=== PATIENT | female | born 1990 | race Caucasian/White ===

== ENCOUNTER 2017-07-22 22:19 | Emergency (ER) | payer OTHER ==
[~2017-07-22] VITALS: Ht 165.1 cm; Wt 99.8 kg
[~2017-07-22 22:19] MED LIST: LEVA500T PO
--- NOTE | 2017-07-22 23:19 | PD ---
HPI Chief Complaint Contractions Date Seen: Jul 22, 2017 Travel History International Travel<30 Days: No Contact w/Intl Traveler<30Days: No Known Affected Area: No History of Present Illness HPI 26-year-old G 3 P1 who is here at 40 weeks gestation complains of nocturnal contractions for the past 3 days. She felt that they were becoming more regular and more painful before her arrival but since she has been here at the hospital they seem to have dissipated. Patient denies vaginal discharge, vaginal bleeding. Patient states that she was 4-5 cm in the office today and she is group B strep positive. 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 SKIN: Warm and dry. HEAD: Normocephalic and atraumatic. EYES: No scleral icterus. No injection or drainage. ENT: No nasal drainage noted. Mucous membranes pink. Airway patent. NECK: Supple, trachea midline. No JVD. CARDIOVASCULAR: Regular rate and rhythm without murmurs, gallops, or rubs. RESPIRATORY: Breath sounds equal bilaterally. No accessory muscle use. ABDOMEN/GI: Abdomen soft, non-tender, bowel sounds present, no rebound, no guarding Gravid to [-38] weeks size Fundal Height: [-] GENITOURINARY: External Genitalia: intact and normal in appearance BUS glands: [Normal-] Cervix: [Posterior-] Dilatation: [-1-2] Effacement: [-50] Station: [-3-] Presentation: [-Vertex] Membranes: [intact or ruptured] intact with negative amnisure Uterine Contractions: [-] Absent FHT's: Category: [-] 1 Baseline: [-140] Reactive: [Moderate-] Variability: [Moderate-] Decels: [-Absent] EXTREMITIES: No cyanosis or edema. BACK: Nontender without obvious deformity. No CVA tenderness. NEUROLOGICAL: Awake and alert. Motor and sensory grossly within normal limits. Five out of 5 muscle strength in all muscle groups. Normal speech. Data Data Vital Signs Reviewed: Yes Group B Strep: Negative MDM Medical Record Reviewed: Yes Plan 26-year-old with a prior section who is been cleared for Patient with contractions earlier but now they have dissipated Labor precautions given and she is already scheduled for induction of labor if she does not labor spontaneously Diagnosis Diagnosis: Primary Impression: 40 weeks gestation of Additional Impressions: False labor after 37 weeks of gestation without delivery Previous section complicating , antepartum condition or complication Disposition: 01 DISCHARGE HOME Jeanne Fang MD Jul 22, 2017 23:18
== END 2017-07-22 23:22 | disposition home or self-care (01) ==
LOC: HOBED 22:19
DX: O47.1 False labor at or after 37 completed weeks of gestation (principal); O34.219 Maternal care for unspecified type scar from previous cesarean delivery; Z3A.40 40 weeks gestation of pregnancy
CPT/HCPCS: 59025; 84112

== ENCOUNTER 2017-07-24 14:15 | Inpatient (IN) | payer OTHER ==
[2017-07-24] VITALS (35 sets, daily range): BP systolic 108–141; BP diastolic 61–108; PULSE 68–105; RESP 18–22; TEMP 97.9–98.8
[2017-07-24] MEDS: LACTATED RINGER'S 1000 ML INJ 1,000 ML IV SCH ×2 (15:01→23:01)
[2017-07-24] MEDS ORDERED: LACTATED RINGER'S 1000 ML INJ 1,000 ML IV PRN (15:01)
[2017-07-24] MEDS ORDERED: SODIUM CHLORID 0.9% 500 ML INJ 500 ML IV PRN (15:15)
[2017-07-24] MEDS ORDERED: MINERAL OIL 10 ML VIAL TOPICAL PRN (15:15)
[2017-07-24] MEDS ORDERED: LIDOCAINE HCL 1% 50 ML VIAL I-DERMAL PRN (15:15)
[2017-07-24] MEDS ORDERED: CITRIC ACID-SODIUM CITRATE LIQ 30 ML UDC PO SCH (15:15)
[2017-07-24] MEDS ORDERED: LIDOCAINE HCL 1% 50 ML VIAL INFIL PRN (15:15)
[2017-07-24] MEDS ORDERED: OXYTOCIN 30 UNITS-500ML PREMIX 500 ML IV ONE (15:15)
[2017-07-24] MEDS ORDERED: SODIUM CHLOR 0.9% 1000 ML INJ 1,000 ML IV PRN (15:21)
--- NOTE | 2017-07-24 15:21 | PD ---
HPI Chief Complaint 40 weeks and 4 days SROM today at 10:30 Date Seen: Jul 24, 2017 Time Seen: 15:10 Travel History International Travel<30 Days: No Contact w/Intl Traveler<30Days: No Known Affected Area: No History of Present Illness HPI Pt is a 26 yo at 40 weeks and 4 days. EDC 07/20/2017 Care with Jannaaimee Larson. Pt has had previous C section for breech presentation. She desires and consulted Dr May 07-09-2017 for same. Pt was deemed a suitable candidate. Pt reports large gush of fluid around 10:30 this morning. Clear. She states that she filled a pad within an hour. Minimal trickle since. Amniosure is faintly positive. GBS is negative. No vaginal bleeding. Active movements. Weeks Gestation: 40 Para: 1 Miscarriage: 1 History Past Medical History Medical History: Denies Significant Hx Obstetric History Obstetric History Previous C section for breech, Previous miscarriage Past Surgical History Narrative Surgical Previous C Section Surgical History: No Previous Surgery Family History Family History: Negative Social History Alcohol Use: No Tobacco Use: Yes (1/2 PPD smoker) Substance Abuse: No Allergies-Medications (Allergen,Severity, Reaction): Coded Allergies: No Known Allergies (Verified Allergy, Unknown, 07/22/17) *MDRO Multi-Drug Resistant Organism (Verified Adverse Reaction, Unknown, ) 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 SKIN: Warm and dry. HEAD: Normocephalic and atraumatic. EYES: No scleral icterus. No injection or drainage. ENT: No nasal drainage noted. Mucous membranes pink. Airway patent. NECK: Supple, trachea midline. No JVD. CARDIOVASCULAR: Regular rate and rhythm without murmurs, gallops, or rubs. RESPIRATORY: Breath sounds equal bilaterally. No accessory muscle use. BREASTS: Bilateral exam showed no masses , no retractions, no nipple discharge. ABDOMEN/GI: Abdomen soft, non-tender, bowel sounds present, no rebound, no guarding Gravid to [40] weeks size Fundal Height: [40] Kunal's EFW 7and 1/2 lbs GENITOURINARY: External Genitalia: intact and normal in appearance BUS glands: [wnl] Cervix: [soft] Dilatation: [3cm] Effacement: [80%] Station: [-2] Presentation: [vertex] Membranes: [ruptured] forebag palpable Uterine Contractions: [none] FHT's: Category: [1] Baseline: [130s] Reactive: [-] Variability: [moderate] Decels: [none] EXTREMITIES: No cyanosis or edema. BACK: Nontender without obvious deformity. No CVA tenderness. NEUROLOGICAL: Awake and alert. Motor and sensory grossly within normal limits. Five out of 5 muscle strength in all muscle groups. Normal speech. Data Data Vital Signs Reviewed: Yes Orders Orders Ob (2e) Additional Admit Info (07/24/17 15:00) Group B Strep: Negative MDM Medical Record Reviewed: Yes Plan Pt is a 26 yo at 40 weeks and 4 days. Pt presents with SROM at 10:30 this morning. Active movements, not feeling contractions. Amniosure positive. GBS negative Pt with previous C Section and cleared for . Will admit to L&D. Plan will be to AROM forebag and internalize and await events. If no cervical change will augment with low dose Pitocin per protocol. Diagnosis Diagnosis: Primary Impression: Postmaturity , 40-42 weeks gestation Additional Impressions: Previous delivery affecting Ruptured, membranes, premature Desires (vaginal after ) trial Sage Hilario MD Jul 24, 2017 15:20
--- NOTE | 2017-07-24 15:30 | HHI.HP ---
HPI Chief Complaint 40 weeks and 4 days Previous C Section, desiring SROM at 10:30 this morning. Date Seen: Jul 24, 2017 Time Seen: 15:10 Travel History International Travel<30 Days: No Contact w/Intl Traveler<30Days: No Known Affected Area: No History of Present Illness HPI Pt is a 26 yo at 40 weeks and 4 days. EDC 07/20/2017 Care with Janna Larson. Pt has had previous C section for breech presentation. She desires and consulted Dr May 07-09-2017 for same. Pt was deemed a suitable candidate. Pt reports large gush of fluid around 10:30 this morning. Clear. She states that she filled a pad within an hour. Minimal trickle since. Amniosure is faintly positive. GBS is negative. No vaginal bleeding. Active movements. Pt is being admitted for trial of labor after previous vaginal delivery Weeks Gestation: 40 Para: 1 : 3 Miscarriage: 1 History Past Medical History Medical History: Denies Significant Hx Obstetric History Obstetric History Previous C Section for breech/ previous miscarriage Past Surgical History Narrative Surgical previous C Section Family History Family History: Negative Social History Alcohol Use: No Tobacco Use: Yes (1/2 PPD smoker) Substance Abuse: No Allergies-Medications (Allergen,Severity, Reaction): Coded Allergies: No Known Allergies (Verified Allergy, Unknown, 07/22/17) *MDRO Multi-Drug Resistant Organism (Verified Adverse Reaction, Unknown, ) 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 SKIN: Warm and dry. HEAD: Normocephalic and atraumatic. EYES: No scleral icterus. No injection or drainage. ENT: No nasal drainage noted. Mucous membranes pink. Airway patent. NECK: Supple, trachea midline. No JVD. CARDIOVASCULAR: Regular rate and rhythm without murmurs, gallops, or rubs. RESPIRATORY: Breath sounds equal bilaterally. No accessory muscle use. BREASTS: Bilateral exam showed no masses , no retractions, no nipple discharge. ABDOMEN/GI: Abdomen soft, non-tender, bowel sounds present, no rebound, no guarding Gravid to [40] weeks size Fundal Height: [40] GENITOURINARY: External Genitalia: intact and normal in appearance BUS glands: [wnl] Cervix: [soft] Dilatation: [3cm] Effacement: [80%] Station: [-2] Presentation: [vertex] Membranes: [ruptured] Uterine Contractions: [none] FHT's: Category: [1] Baseline: [130s] Reactive: [-] Variability: [moderate] Decels: [none] EXTREMITIES: No cyanosis or edema. BACK: Nontender without obvious deformity. No CVA tenderness. NEUROLOGICAL: Awake and alert. Motor and sensory grossly within normal limits. Five out of 5 muscle strength in all muscle groups. Normal speech. Caprini VTE Risk Assessment Caprini VTE Risk Assessment: No/Low Risk (score <= 1) Caprini Risk Assessment Model Point Value = 1 Point Value = 2 Point Value = 3 Point Value = 5 Age 41-60 Minor surgery BMI > 25 kg/m2 Swollen legs Varicose veins or History of unexplained or recurrent spontaneous Oral contraceptives or hormone replacement Sepsis (< 1 month) Serious lung disease, including pneumonia (< 1 month) Abnormal pulmonary function Acute myocardial infarction Congestive heart failure (< 1 month) History of inflammatory bowel disease Medical patient at bed rest Age 61-74 Arthroscopic surgery Major open surgery (> 45 min) Laparoscopic surgery (> 45 min) Malignancy Confined to bed (> 72 hours) Immobilizing plaster cast Central venous access Age >= 75 History of VTE Family history of VTE Factor V Leiden Prothrombin [id number] Lupus anticoagulant Anticardiolipin antibodies Elevated serum homocysteine Heparin-induced thrombocytopenia Other congenital or acquired thrombophilia Stroke (< 1 month) Elective arthroplasty Hip, pelvis, or leg fracture Acute spinal cord injury (< 1 month) Prophylaxis Regimen Total Risk Factor Score Risk Level Prophylaxis Regimen 0-1 Low Early ambulation 2 Moderate Order ONE of the following: *Sequential Compression Device (SCD) *Heparin 5000 units SQ BID 3-4 Higher Order ONE of the following medications: *Heparin 5000 units SQ TID *Enoxaparin/Lovenox 40 mg SQ daily (WT < 150 kg, CrCl > 30 mL/min) *Enoxaparin/Lovenox 30 mg SQ daily (WT < 150 kg, CrCl > 10-29 mL/min) *Enoxaparin/Lovenox 30 mg SQ BID (WT < 150 kg, CrCl > 30 mL/min) AND/OR *Sequential Compression Device (SCD) 5 or more Highest Order ONE of the following medications: *Heparin 5000 units SQ TID (Preferred with Epidurals) *Enoxaparin/Lovenox 40 mg SQ daily (WT < 150 kg, CrCl > 30 mL/min) *Enoxaparin/Lovenox 30 mg SQ daily (WT < 150 kg, CrCl > 10-29 mL/min) *Enoxaparin/Lovenox 30 mg SQ BID (WT < 150 kg, CrCl > 30 mL/min) AND *Sequential Compression Device (SCD) Data Data Vital Signs Reviewed: Yes Orders Orders Ob (2e) Additional Admit Info (07/24/17 15:00) Admit To Inpatient (07/24/17 ) Code Status (07/24/17 15:01) Vital Signs (Adult) .Per protocol (07/24/17 15:01) Activity Oob Ad Judie (07/24/17 15:01) Heart (07/24/17 15:01) Amnioinfusion (07/24/17 15:01) Diet Liquid (07/24/17 Dinner) Lactated Ringer's 1000 Ml Inj (Lr 1000 M (07/24/17 15:01) Lactated Ringer's 1000 Ml Inj (Lr 1000 M (07/24/17 15:01) Sodium Chlorid 0.9% 500 Ml Inj (Ns 500 M (07/24/17 15:15) Sodium Chlor 0.9% 1000 Ml Inj (Ns 1000 M (07/24/17 15:21) Lidocaine 1% Inj (50 Ml) (Xylocaine 1% I (07/24/17 15:15) Citric Acid-Sodium Citrate Liq (Bicitra (07/24/17 15:15) Fentanyl Inj (Fentanyl Inj) (07/24/17 15:15) Fentanyl Inj (Fentanyl Inj) (07/24/17 15:15) Complete Blood Count With Diff (07/24/17 15:01) Hold Clot (07/24/17 15:01) Abo/Rh Blood Type (07/24/17 15:01) Urinalysis - C+S If Indicated (07/24/17 15:01) Drug Screen, Random Urine (07/24/17 15:01) Resp Oxygen Non Rebreathe Mask (07/24/17 ) ^ Epidural / Intrathecal Infus (07/24/17 15:01) Oxytocin 30 Units-500ml Premix (Pitocin (07/24/17 15:15) Lidocaine 1% Inj (50 Ml) (Xylocaine 1% I (07/24/17 15:15) Light Mineral Oil (Muri-Lube Oil) (07/24/17 15:15) Inpatient Certification (07/24/17 ) Group B Strep: Negative Assessment/Plan Assessment and Plan Pt is a 26 yo at 40 weeks and 4 days. Presents with SROM at 10:30 Amniosure positive. Prior C Section, desirous of . EFW 7 and 1/2 lbs. Will admit to L&D. AROM of forebag, internalize. Expectant management, will initiate low dose pitocin per protocol if no changes. Sage Hilario MD Jul 24, 2017 15:30
[2017-07-24 16:44] LABS: BILIRUBIN, URINE NEG (NEG); BLOOD, URINE NEG (NEG); GLUCOSE,URINE NEG (NEG); KETONE, URINE NEG (NEG); MUCUS URINE FEW /lpf (OCC); NITRITE,URINE NEG (NEG); PH, URINE 7.5 (5.0-8.5); SQUAMOUS EPITHELIAL CELL URINE 8 /hpf (0-5); URIC ACID CRYSTALS, URINE MOD /hpf; URINE COLOR YELLOW (YELLW/STRAW); URINE LEUKOCYTE ESTERASE MOD (NEG)
[2017-07-24 16:45] LABS: AUTOMATED NEUTROPHIL # 10.2 TH/MM3 (1.8-7.7); BASOPHIL % 0.2 % (0.0-2.0); EOSINOPHIL # 0.1 TH/MM3 (0-0.4); EOSINOPHIL % 0.6 % (0.0-4.0); HEMATOCRIT 29.9 % (35.0-46.0); HEMOGLOBIN 10.3 GM/DL (11.6-15.3); LYMPH % 16.7 % (9.0-44.0); LYMPHOCYTE # 2.2 TH/MM3 (1.0-4.8); MEAN CELL VOLUME 79.5 FL (80.0-100.0); MEAN CORPUSCULAR HEMOGLOBIN 27.2 PG (27.0-34.0); MEAN CORPUSCULAR HGB CONC 34.2 % (32.0-36.0); MEAN PLATELET VOLUME 8.7 FL (7.0-11.0); MONO % 6.8 % (0.0-8.0); MONOCYTE # 0.9 TH/MM3 (0-0.9); NEUT % 75.7 % (16.0-70.0); PLATELET COUNT 344 TH/MM3 (150-450); RED BLOOD COUNT 3.77 MIL/MM3 (4.00-5.30); RED CELL DISTRIBUTION WIDTH 13.4 % (11.6-17.2); WHITE BLOOD COUNT 13.4 TH/MM3 (4.0-11.0)
--- NOTE | 2017-07-24 17:08 | PD.LABORPN ---
Subjective Subjective 40 weeks and 4 days. Comfortable. Objective Objective Pelvic Exam: Cervix: [soft] Dilatation: [3cm] Effacement: [70%] Station: [-2] Presentation: [vertex] Membranes: [ruptured] AROM of forebag , minimal, clear Uterine Contractions: [irregular ] IUPC inserted FHT's: Category: [1] Baseline: [120s] Reactive: [-] Variability: [moderate] Decels: [none] Weeks Gestation: 40 Gest Age Assessed Date: Jul 24, 2017 Gest Age Assessed Time: 15:10 Pt started active labor?: No Medical induction of labor?: No Assessment/Plan Assessment and Plan 40 weeks and 4 days. SROM. 3cm/70%/-2, AROM of forebag done. GBS negative Expectant, will start low dose Pitocin if no cervical change. Sage Hilario MD Jul 24, 2017 17:08
[2017-07-24] MEDS ORDERED: OXYTOCIN 30 UNITS-500ML PREMIX 500 ML IV PRN (19:00)
[2017-07-24] MEDS ORDERED: SE-NTAB3 PO ×2 (19:09)
[2017-07-24] MEDS ORDERED: fentaNYL 2MCG-BUPIV 0.125% INJ 100 ML ONE (21:42)
[2017-07-24] MEDS ORDERED: ePHEDrine/NS 25 MG/5 ML SYRINGE ONE (21:43)
[2017-07-24] MEDS ORDERED: fentaNYL 2MCG-BUPIV 0.125% 100 ML EPIDURAL SCH (23:00)
[2017-07-24] MEDS ORDERED: DO NOT ADMINISTER ANTICOAGULANTS PRN (23:00)
[2017-07-24] MEDS ORDERED: ePHEDrine/NS 25 MG/5 ML SYRINGE IV PUSH PRN (23:00)
[2017-07-24] MEDS ORDERED: NO SYSTEM NARCOTICS PRN (23:00)
[2017-07-25] VITALS (13 sets, daily range): BP systolic 118–133; BP diastolic 70–82; PULSE 65–87; RESP 18–20; TEMP 97.7–98.5; O2SAT 97–98
--- NOTE | 2017-07-25 00:23 | PD.LABORPN ---
Subjective Subjective Patient seen and examined. No complaints. Epidural in place. Pitocin started with contraction every 2-3 minutes. Objective Vital Signs Vital Signs Date Time Temp Pulse Resp B/P (MAP) Pulse Ox O2 Delivery O2 Flow Rate FiO2 07/25/17 00:01 83 133/78 (96) 07/24/17 23:40 75 128/78 (95) 07/24/17 23:31 105 121/70 (87) 07/24/17 23:16 97.9 07/24/17 23:01 87 124/87 (99) 07/24/17 22:31 80 121/80 (94) 07/24/17 22:30 68 07/24/17 22:28 83 123/89 (100) 07/24/17 22:25 81 07/24/17 22:25 84 116/79 (91) 07/24/17 22:22 77 108/61 (77) 07/24/17 22:20 77 07/24/17 22:19 78 110/68 (82) 07/24/17 22:16 76 124/73 (90) 07/24/17 22:15 83 07/24/17 22:13 78 126/76 (93) 07/24/17 22:10 85 121/69 (86) 07/24/17 22:10 83 07/24/17 22:07 86 124/88 (100) 07/24/17 22:05 83 07/24/17 22:04 82 119/67 (84) 07/24/17 22:01 83 127/86 (100) 07/24/17 22:00 78 07/24/17 21:55 78 07/24/17 21:50 86 07/24/17 21:45 80 07/24/17 21:41 98.1 22 07/24/17 21:40 74 07/24/17 21:32 130/75 (93) 07/24/17 21:32 70 07/24/17 21:31 75 141/108 (119) 07/24/17 21:01 73 136/75 (95) 07/24/17 20:53 68 129/76 (93) 07/24/17 19:30 98.2 18 07/24/17 19:28 78 129/74 (92) 07/24/17 18:00 20 07/24/17 17:49 72 111/71 (84) Objective Pelvic Exam: Dilatation: 5cm Effacement:80% Station: -1 Presentation: Vertex Membranes: AROM Uterine Contractions: [Q2-3m FHT's: Category: 1 Baseline: 130s Reactive: + Variability: Moderate Decels: None Weeks Gestation: 40 Gest Age Assessed Date: Jul 24, 2017 Gest Age Assessed Time: 15:10 Pt started active labor?: No Medical induction of labor?: No Assessment/Plan Problem List: (1) Postmaturity , 40-42 weeks gestation ICD Codes: O48.0 - Post-term Status: Acute (2) Desires (vaginal after ) trial ICD Codes: O34.219 - Maternal care for unspecified type scar from previous delivery Status: Acute Assessment and Plan 26 y/o at 40 weeks and 4 days. SROM. 5cm/80%/-1, AROM of forebag done. GBS negative Tolerating Pitocin well, category 1 FHT, reassuring Epidural in place Wilian Kuhn MD R2 Jul 25, 2017 00:23
[2017-07-25] MEDS ORDERED: LIDOCAINE HCL 1% 20 ML VIAL ONE (00:58)
--- NOTE | 2017-07-25 01:44 | PD.OB.DELI ---
Weeks gestation: 40 Gest age assessed date: Jul 24, 2017 Gest age assessed time: 15:10 Pt started active labor?: Yes Medical induction of labor?: No Artificial rupture of membrane: No Anesthesia: Epidural Episiotomy: None Vaginal Delivery: Normal Presentation: Occiput posterior Nuchal Cord: None Delayed cord clamping (45 sec): Yes : Male Delivery date: Jul 25, 2017 Delivery time: 01:23 One Minute : 9 Five Minute : 9 Weight: [id number] Placenta: Spontaneous delivery Laceration: Vaginal laceration, 2 deg Repair: Chromic running Estimated blood loss: [address] Ugalde, Dr. Kuhn, and Dr. Hilario were present Evette Ugalde MD R1 Jul 25, 2017 01:44
[2017-07-25] MEDS ORDERED: ONDANSETRON ODT 4 MG TAB PO PRN (02:00)
[2017-07-25] MEDS ORDERED: OXYTOCIN 30 UNITS-500ML PREMIX 500 ML IV SCH (02:00)
[2017-07-25] MEDS ORDERED: oxyCODONE/ACETAMINOPHEN 5 MG/325 MG TAB PO PRN ×2 (02:00)
[2017-07-25] MEDS ORDERED: IBUPROFEN 800 MG TAB PO PRN (02:00)
[2017-07-25] MEDS ORDERED: ACETAMINOPHEN 325 MG TAB PO PRN (02:00)
[2017-07-25] MEDS ORDERED: ZOLPIDEM TARTRATE 5 MG TAB PO PRN (02:00)
[2017-07-25] MEDS ORDERED: WITCH HAZEL 50%/GLYCERIN 12.5% 40 PAD JAR TOPICAL PRN (02:00)
[2017-07-25] MEDS ORDERED: SODIUM CHLORIDE 0.9% FLUSH 10 ML FLUSH IV FLUSH PRN (02:00)
[2017-07-25] MEDS ORDERED: BENZOCAINE 20% TOPICAL SPRAY 60 ML CAN TOPICAL PRN (02:00)
[2017-07-25] MEDS ORDERED: DOCUSATE SODIUM 50 MG/SENNA 8.6 MG TAB PO PRN (02:00)
[2017-07-25] MEDS ORDERED: ALUMINUM/MAGNESIUM/SIMETH 30 ML CUP PO PRN ×2 (02:00→12:30)
[2017-07-25] MEDS ORDERED: SODIUM CHLORIDE 0.9% FLUSH 10 ML FLUSH IV FLUSH SCH (09:00)
[2017-07-25] MEDS ORDERED: MEASLES, MUMPS, RUBELLA VACCINE 0.5 ML VIAL SQ ONE (16:00)
[2017-07-25] MEDS ORDERED: DIPHTH/TETANUS/ACEL PERTUSSIS (BOOSTER) 0.5 ML VIAL/PFS IM ONE (16:00)
--- NOTE | 2017-07-26 09:01 | HHI.OB ---
Subjective Post Day: 1 Remarks Patient seen and examined this morning. AFVSS overnight. day #1. Patient states her pain is at a 2/10. Decreased lochia. Denies dysuria. No breast tenderness. She is feeding the baby via breast. Appetite good. No nausea or vomiting. Patient reports she has had at least one BM since delivery without issues. Ambulating well. Denies fevers, chills, CP, SOB, calf pain. She otherwise has no other complaints or concerns this morning. Objective Vitals/I&O Vital Signs Date Time Temp Pulse Resp B/P (MAP) Pulse Ox O2 Delivery O2 Flow Rate FiO2 07/25/17 20:05 97.9 97 07/25/17 20:05 69 18 120/82 (95) Objective Remarks GENERAL: Well-nourished, well-developed patient. CARDIOVASCULAR: Regular rate and rhythm without murmurs, gallops, or rubs. RESPIRATORY: Breath sounds equal bilaterally. No accessory muscle use. ABDOMEN/GI: Abdomen soft, non-tender. Fundus: Firm, non-tender at umbilicus. GENITOURINARY: Light to moderate bleeding. EXTREMITIES: No cyanosis or edema, non-tender, without signs of DVT. Medications and IVs Current Medications Medications (Trade) Dose Ordered Sig/Shyam Route Start Time Stop Time Status Last Admin Oxytocin 500 ml @ 0 mls/hr TITRATE PRN IV 07/24/17 19:00 07/24/17 20:14 Fentanyl/ Bupivacaine HCl 100 ml @ 0 mls/hr TITRATE EPIDURAL 07/24/17 23:00 07/24/17 23:46 (NS Flush) 2 ml BID IV FLUSH 07/25/17 09:00 (NS Flush) 2 ml UNSCH PRN IV FLUSH 07/25/17 02:00 (Tylenol) 650 mg Q4H PRN PO 07/25/17 02:00 (Motrin) 800 mg Q8H PRN PO 07/25/17 02:00 (Percocet 5-325 Mg) 1 tab Q4H PRN PO 07/25/17 02:00 (Percocet 5-325 Mg) 2 tab Q4H PRN PO 07/25/17 02:00 (Americaine 20% Top Spr) 1 spray Q4H PRN TOPICAL 07/25/17 02:00 (Tucks Pads) 1 applic QID PRN TOPICAL 07/25/17 02:00 (Lakeisha-Colace) 2 tab Q12H PRN PO 07/25/17 02:00 (Ambien) 5 mg HS PRN PO 07/25/17 02:00 (Zofran Odt) 4 mg Q6H PRN PO 07/25/17 02:00 (Mag-Al Plus Susp Liq) 30 ml QID PRN PO 07/25/17 12:30 07/25/17 13:39 Assessment/Plan Problem List: (1) care following vaginal delivery ICD Codes: Z39.2 - Encounter for routine follow-up Assessment and Plan 26 year old PPD#1. 1. Care - AFVSS - Encouraged OOB, as tolerated - Motrin prn pain - Advised pelvic rest x 6 weeks - without issues - Contraception: discussed with patient this AM, desiring mini pill, encouraged follow up with OB provider - Will f/u with OB provider within 6 weeks - Stable for discharge today beatriz May Discharge Planning Stable for discharge today Eulalio Alcantar MD Jul 26, 2017 09:01
--- NOTE | 2017-07-26 09:04 | HHI.DCPOC ---
Discharge Care Plan Diagnosis: (1) Desires (vaginal after ) trial (2) care following vaginal delivery Report Symptoms to Your Doctor -Temperature above 100.5 degrees -Redness, of incision or excessive or foul smelling drainage -Unusual pain or calf pain -Increased vaginal bleeding -Painful or difficulty urinating -Feelings of extreme sadness or anxiety after 2 weeks Goals to Promote Your Health * To maintain your health at the optimal level, follow up with your OB provider within 6 weeks after hospital discharge. Directions to Meet Your Goals Take your medications as prescribed Follow your dietary instruction Follow activity as directed Ensure plenty of rest for recovery Drink fluids for hydration Keep your appointments as scheduled Take your immunizations and boosters as scheduled If your symptoms worsen call your PCP, if no PCP go to Urgent Care Center or Emergency Room Smoking is Dangerous to Your Health. Avoid second hand smoke Call the 24-hour crisis hotline for domestic abuse at Eulalio Alcantar MD Jul 26, 2017 09:04
[2017-07-26] MEDS ORDERED: PERI PO (09:05)
[2017-07-26] MEDS ORDERED: IBUP1TAB7 PO (09:05)
== END 2017-07-26 13:15 | disposition home or self-care (01) | DRG 775 ==
LOC: HOBED 14:15 → H2EA 15:05 → H1EA 07-25 03:34
PROVIDERS: ADMIT Obstetrics & Gynecology; ATTEND Obstetrics & Gynecology
PROC: 10907ZC Drainage of Amniotic Fluid, Therapeutic from Products of Conception, Via Natural or Artificial Opening (ICD-10-PCS; 2017-07-24)
PROC: 10E0XZZ Delivery of Products of Conception, External Approach (ICD-10-PCS; principal; 2017-07-25)
PROC: 0KQM0ZZ Repair Perineum Muscle, Open Approach (ICD-10-PCS; 2017-07-25)
DX: O34.219 Maternal care for unspecified type scar from previous cesarean delivery (principal); F17.210 Nicotine dependence, cigarettes, uncomplicated; O99.334 Smoking (tobacco) complicating childbirth; O48.0 Post-term pregnancy; O70.1 Second degree perineal laceration during delivery; Z3A.40 40 weeks gestation of pregnancy; Z37.0 Single live birth
CPT/HCPCS: 59025; 80307; 81001; 84112; 85025; 87640; 87641; J2590; J7120

== ENCOUNTER 2017-11-09 10:43 | Emergency (ER) | payer OTHER ==
[~2017-11-09] VITALS: Ht 162.6 cm; Wt 90.0 kg
[~2017-11-09 10:43] MED LIST changes: +IBUP1TAB7 PO; -LEVA500T PO; +PERI PO; +SE-NTAB3 PO
[2017-11-09 10:55] VITALS: BP 126/87; PULSE 72; RESP 16; TEMP 98; O2SAT 100
[2017-11-09] MEDS ORDERED: SODIUM CHLOR 0.9% 1000 ML INJ 1,000 ML IV SCH (11:07)
[2017-11-09] MEDS ORDERED: KETOROLAC TROMETHAMINE 60 MG/2 ML (IM) VIAL IM ONE (11:15)
[2017-11-09] MEDS ORDERED: ONDANSETRON ODT 4 MG TAB PO ONE (11:15)
--- NOTE | 2017-11-09 11:16 | PD ---
HPI Chief Complaint: GI Complaint Time Seen by Provider: 10:59 Travel History International Travel<30 days: No Contact w/Intl Traveler<30days: No Traveled to known affect area: No History of Present Illness HPI 27y female with a history of kidney stones presents emergency department for evaluation of right-sided abdominal pain with associated nausea and vomiting that woke her up this morning. Patient states that the pain is focused in the right abdominal region described as stabbing, constant and radiating to the back. Says her pain is 8/10. Her last menstrual period was 1 year ago and she is 3 months post . She does not use contraception methods. Her last BM was this morning and was normal for her. She has had a c section 2 years ago, but otherwise no other surgeries. She denies recent travel , new foods, unusual foods, abdominal pain similar to previous episodes. She denies fevers or chills. She denies urinary symptoms. She smokes one half pack per day cigarettes and does not drink alcohol. Patient is and is monogamous. 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 HEAD: Atraumatic. Normocephalic. EYES: Pupils equal and round. No scleral icterus. No injection or drainage. ENT: No nasal bleeding or discharge. Mucous membranes pink and moist. NECK: Trachea midline. No JVD. CARDIOVASCULAR: Regular rate and rhythm. No murmur appreciated. RESPIRATORY: No accessory muscle use. Clear to auscultation. Breath sounds equal bilaterally. GASTROINTESTINAL: Abdomen soft, mild tenderness to palpation right upper quadrant without organomegaly. Nondistended. Normoactive bowel sounds. Positive CVA tenderness in the right. MUSCULOSKELETAL: No obvious deformities. No clubbing. No cyanosis. No edema. NEUROLOGICAL: Awake and alert. No obvious cranial nerve deficits. Motor grossly within normal limits. Normal speech. PSYCHIATRIC: Appropriate mood and affect; insight and judgment normal. Data Data Last Documented VS Vital Signs Date Time Temp Pulse Resp B/P (MAP) Pulse Ox O2 Delivery O2 Flow Rate FiO2 11/09/17 12:18 68 18 120/69 (86) 100 Room Air 11/09/17 10:55 98.0 Orders Orders Complete Blood Count With Diff (11/09/17 11:07) Comprehensive Metabolic Panel (11/09/17 11:07) Lipase (11/09/17 11:07) Prothrombin Time / Inr (Pt) (11/09/17 11:07) Act Partial Throm Time (Ptt) (11/09/17 11:07) Urinalysis - C+S If Indicated (11/09/17 11:07) Iv Access Insert/Monitor (11/09/17 11:07) Ecg Monitoring (11/09/17 11:07) Oximetry (11/09/17 11:07) NPO (11/09/17 11:07) Sodium Chlor 0.9% 1000 Ml Inj (Ns 1000 M (11/09/17 11:07) Ketorolac Inj (Toradol Inj) (11/09/17 11:15) Ed Urine Pregnancytest Poc (11/09/17 11:07) Ondansetron Odt (Zofran Odt) (11/09/17 11:15) Ct Abd/Pel W/O Iv Contrast (11/09/17 ) Ed Discharge Order (11/09/17 13:55) Labs Laboratory Tests Test 11/09/17 11:25 11/09/17 12:15 White Blood Count 15.2 TH/MM3 Red Blood Count 5.58 MIL/MM3 Hemoglobin 14.6 GM/DL Hematocrit 43.8 % Mean Corpuscular Volume 78.5 FL Mean Corpuscular Hemoglobin 26.2 PG Mean Corpuscular Hemoglobin Concent 33.4 % Red Cell Distribution Width 15.8 % Platelet Count 419 TH/MM3 Mean Platelet Volume 7.8 FL Neutrophils (%) (Auto) 83.7 % Lymphocytes (%) (Auto) 10.6 % Monocytes (%) (Auto) 4.0 % Eosinophils (%) (Auto) 1.5 % Basophils (%) (Auto) 0.2 % Neutrophils # (Auto) 12.7 TH/MM3 Lymphocytes # (Auto) 1.6 TH/MM3 Monocytes # (Auto) 0.6 TH/MM3 Eosinophils # (Auto) 0.2 TH/MM3 Basophils # (Auto) 0.0 TH/MM3 CBC Comment DIFF FINAL Differential Comment Prothrombin Time 9.9 SEC Prothromb Time International Ratio 1.0 RATIO Activated Partial Thromboplast Time 29.6 SEC Blood Urea Nitrogen 8 MG/DL Creatinine 0.91 MG/DL Random Glucose 88 MG/DL Total Protein 8.1 GM/DL Albumin 4.3 GM/DL Calcium Level 9.2 MG/DL Alkaline Phosphatase 98 U/L Aspartate Amino Transf (AST/SGOT) 13 U/L Alanine Aminotransferase (ALT/SGPT) 23 U/L Total Bilirubin 0.3 MG/DL Sodium Level 139 MEQ/L Potassium Level 3.8 MEQ/L Chloride Level 106 MEQ/L Carbon Dioxide Level 22.8 MEQ/L Anion Gap 10 MEQ/L Estimat Glomerular Filtration Rate 73 ML/MIN Lipase 110 U/L Urine Color YELLOW Urine Turbidity CLEAR Urine pH 7.5 Urine Specific [place] 1.008 Urine Protein NEG mg/dL Urine Glucose (UA) NEG mg/dL Urine Ketones NEG mg/dL Urine Occult Blood LARGE Urine Nitrite NEG Urine Bilirubin NEG Urine Urobilinogen LESS THAN 2.0 MG/DL Urine Leukocyte Esterase NEG Urine RBC /hpf Urine WBC 2 /hpf Urine Squamous Epithelial Cells 3 /hpf Urine Bacteria OCC /hpf Microscopic Urinalysis Comment CULT NOT INDICATED MDM Medical Decision Making Medical Screen Exam Complete: Yes Emergency Medical Condition: Yes Differential Diagnosis Cholecystitis, cholelithiasis, choledocholithiasis, hydronephrosis, pyelonephritis Narrative Course 27y female with a history of kidney stones presents emergency department for evaluation of right-sided abdominal pain with associated nausea and vomiting that woke her up this morning. Patient states that the pain is focused in the right abdominal region described as stabbing, constant and radiating to the back. Says her pain is 8/10. Her last menstrual period was 1 year ago and she is 3 months post . She does not use contraception methods. Her last BM was this morning and was normal for her. She has had a c section 2 years ago, but otherwise no other surgeries. She denies recent travel , new foods, unusual foods, abdominal pain similar to previous episodes. She denies fevers or chills. She denies urinary symptoms. She smokes one half pack per day cigarettes and does not drink alcohol. Patient is and is monogamous. Vital signs are stable. Physical exam findings demonstrate mild tenderness palpation of the right upper quadrant and right CVA tenderness. Labs and imaging studies ordered. Zofran for nausea and Toradol for pain. CBC & BMP Diagram 11/09/17 11:25 Total Protein 8.1, Albumin 4.3, Calcium Level 9.2, Alkaline Phosphatase 98, Aspartate Amino Transf (AST/SGOT) 13 L, Alanine Aminotransferase (ALT/SGPT) 23, Total Bilirubin 0.3 UA contains RBCs, occasional Bacteria. Ct ordered for further evaluation of hematuria and CVA tenderness. Last Impressions Abdomen/Pelvis CT 11/09/17 0000 Signed Impressions: CONCLUSION: 1. Mild prominence to the right collecting system. Obstructing stone is not id entified. 2. Pyonephritis cannot be entirely excluded without intravenous contrast 3. No other inflammatory changes are evident to account for the patient's abdo aakash pain. 4. Scattered mesenteric calcifications are noted. Because of the leukocytosis, likely nephrolithiasis, and positive CVA tenderness , Rx for Bactrim and Zofran. Advised to return for worsening or persistent symptoms. Follow up with her PCP and consider urologist if her symptoms persist. Diagnosis Primary Impression: Nephrolithiasis Additional Impression: Leukocytosis Qualified Codes: D72.829 - Elevated white blood cell count, unspecified Referrals: Primary Care Physician Urologist Patient Instructions: General Instructions, Kidney Stones (DC) Additional Instructions: Ensure adequate fluid intake and proper nutrition. You may take Tylenol Motrin per package instructions for pain. Use nausea medication as prescribed for nausea. If your pain worsens or persists, or if you develop fever, chills, and the inability to take fluids, return to the ED for further evaluation. Scripts Sulfamethoxazole-Trimethoprim (Bactrim DS) 800-160 Mg Tab 1 TAB PO BID for Infection, #14 TAB 0 Refills Prov: Yakov Novak MD 11/09/17 Ondansetron Odt (Zofran Odt) 4 Mg Tab 4 MG SL Q8HR Y for Nausea/Vomiting for 7 Days, #30 TAB 0 Refills Prov: Yakov Novak MD 11/09/17 Disposition: 01 DISCHARGE HOME Condition: Stable Heatehr Carrizales Nov 09, 2017 11:16
[2017-11-09 11:21] VITALS: BP 129/94; PULSE 66; RESP 18; O2SAT 100
[2017-11-09 11:39] LABS: AUTOMATED NEUTROPHIL # 12.7 TH/MM3 (1.8-7.7); BASOPHIL % 0.2 % (0.0-2.0); EOSINOPHIL # 0.2 TH/MM3 (0-0.4); EOSINOPHIL % 1.5 % (0.0-4.0); HEMATOCRIT 43.8 % (35.0-46.0); HEMOGLOBIN 14.6 GM/DL (11.6-15.3); LYMPH % 10.6 % (9.0-44.0); LYMPHOCYTE # 1.6 TH/MM3 (1.0-4.8); MEAN CELL VOLUME 78.5 FL (80.0-100.0); MEAN CORPUSCULAR HEMOGLOBIN 26.2 PG (27.0-34.0); MEAN CORPUSCULAR HGB CONC 33.4 % (32.0-36.0); MEAN PLATELET VOLUME 7.8 FL (7.0-11.0); MONOCYTE # 0.6 TH/MM3 (0-0.9); NEUT % 83.7 % (16.0-70.0); PLATELET COUNT 419 TH/MM3 (150-450); RED BLOOD COUNT 5.58 MIL/MM3 (4.00-5.30); RED CELL DISTRIBUTION WIDTH 15.8 % (11.6-17.2); WHITE BLOOD COUNT 15.2 TH/MM3 (4.0-11.0)
[2017-11-09 11:47] LABS: PROTHROMBIN TIME - PATIENT 9.9 SEC (9.8-11.6)
[2017-11-09 11:54] LABS: ALBUMIN 4.3 GM/DL (3.4-5.0); ALT (GPT) 23 U/L (10-53); AST (GOT) 13 U/L (15-37); BICARBONATE 22.8 MEQ/L (21.0-32.0); BLOOD UREA NITROGEN 8 MG/DL (7-18); CALCIUM 9.2 MG/DL (8.5-10.1); CHLORIDE 106 MEQ/L (98-107); CREATININE 0.91 MG/DL (0.50-1.00); GLOMERULAR FILTRATION RATE 73 ML/MIN (>89); GLUCOSE,RANDOM 88 MG/DL (74-106); SODIUM (NA) 139 MEQ/L (136-145)
[2017-11-09 11:57] LABS: ALKALINE PHOSPHATASE 98 U/L (45-117); TOTAL BILIRUBIN ADULT 0.3 MG/DL (0.2-1.0); TOTAL PROTEIN 8.1 GM/DL (6.4-8.2)
[2017-11-09 12:18] VITALS: BP 120/69; PULSE 68; RESP 18; O2SAT 100
[2017-11-09 12:40] LABS: BACTERIA, URINE OCC /hpf; BILIRUBIN, URINE NEG (NEG); BLOOD, URINE LARGE (NEG); GLUCOSE,URINE NEG (NEG); KETONE, URINE NEG (NEG); NITRITE,URINE NEG (NEG); PH, URINE 7.5 (5.0-8.5); SQUAMOUS EPITHELIAL CELL URINE 3 /hpf (0-5); URINE COLOR YELLOW (YELLW/STRAW); URINE LEUKOCYTE ESTERASE NEG (NEG)
--- NOTE | 2017-11-09 13:48 | RADRPT ---
EXAM DATE: 11/09/2017 1:37 PM EDT AGE/SEX: 27 years / Female INDICATIONS: Abdomen pain nausea vomiting, right upper quadrant and flank pain CLINICAL DATA: This is the patient's initial encounter. Patient reports that signs and symptoms have been present for 1 day and indicates a pain score of 9/10. MEDICAL/SURGICAL HISTORY: Renal calculi. section. RADIATION DOSE: 13.19 CTDI (mGy) COMPARISON: No prior exams available for comparison. TECHNIQUE: Multiple contiguous axial images were obtained through the abdomen. Images were obtained using multiple row detector helical technique. Using dose reduction techniques, radiation dose was ke pt as low as reasonably achievable to obtain optimal diagnostic quality images. FINDINGS: The lower lungs are clear. The liver and gallbladder unremarkable The pancreas and spleen appear normal. Dense calcifications are seen in the splenic hilum with associ ated mesenteric calcifications. The adrenal glands are unremarkable Right and left kidneys are unremarkable without stone or obstruction. There is mild prominence to the right collecting system. An obstructing stone is not identified. Pyelonephritis without contrast can not be entirely excluded. There are no inflammatory changes in the bowel or mesentery. The pelvis there are scattered diverticuli evident. Small 2 cm cystic mass is seen in the left adnexa region. There is no free fluid. Review of bone windows reveals degenerative changes in the lower lumbar spine and about both SI joint s. CONCLUSION: 1. Mild prominence to the right collecting system. Obstructing stone is not identified. 2. Pyonephritis cannot be entirely excluded without intravenous contrast 3. No other inflammatory changes are evident to account for the patient's abdominal pain. 4. Scattered mesenteric calcifications are noted. Electronically signed by: Angel Torres MD 11/09/2017 1:47 PM EDT
[2017-11-09] MEDS ORDERED: ZOFR4TAB3 SL (13:56)
[2017-11-09] MEDS ORDERED: BACT800T5 PO (13:59)
== END 2017-11-09 14:15 | disposition home or self-care (01) ==
LOC: NEPC 10:43
DX: N20.0 Calculus of kidney (principal); D72.829 Elevated white blood cell count, unspecified; F17.210 Nicotine dependence, cigarettes, uncomplicated
CPT/HCPCS: 74176; 80053; 81001; 83690; 84703; 85025; 85610; 85730; 96360; 96372; 99284; J1885; J7030